=== PATIENT | male | born 1990 | race Hispanic/Latino ===

== ENCOUNTER 2018-03-29 11:00 | Emergency (ER) | payer OTHER, SELFPAY ==
[2018-03-29] MEDS ORDERED: Dexamethasone 10 MG/ML VIAL ONE (11:25)
[2018-03-29] MEDS ORDERED: Ketorolac Tromethamine 60 MG/2 ML VIAL ONE (11:25)
== END 2018-03-29 12:24 | disposition home or self-care (01) ==
LOC: ERS 11:00
DX: M54.5 Low back pain (principal); E66.01 Morbid (severe) obesity due to excess calories
CPT/HCPCS: 96372; J1100; J1885

== ENCOUNTER 2018-05-27 16:03 | Emergency (ER) | payer SELFPAY ==
--- NOTE | 2018-05-27 16:42 | RAD ---
RADIOGRAPH CHEST 2 VIEWS: HISTORY: 28-year-old male with chest pain. FINDINGS: The lungs are very hypoinflated on the frontal view. There is no air space density, pulmonary edema, pleural effusion, or pneumothorax. IMPRESSION: No acute pulmonary findings. beck mcguire POS: JOAO
[2018-05-27 17:21] LABS: #Basophils 0.1 thou/uL (0.0-0.2); #Eosinphils 0.2 thou/uL (0.0-0.7); #Lymphocytes 2.4 thou/uL (1.20-3.40); #Monocytes 0.5 thou/uL (0.11-0.59); %Basophils 0.6 % (0.0-1.0); %Eosinophils 1.3 % (0.0-10.0); %Lymphocytes 19.7 % (21.0-51.0); %Monocytes 4.3 % (0.0-10.0); %Neutrophils 74.1 % (42.0-75.0); Hemoglobin 14.6 g/dL (14.0-18.0); Mean Corpuscular HGB CONC 34.8 g/dL (32.0-36.0); Mean Corpuscular Hemoglobin 29.5 pg (27.0-31.0); Mean Corpuscular Volume 84.8 fL (78.0-98.0); Mean Platelet Volume 7.9 fL (7.4-10.4); Platelet Count 322 thou/uL (130-400); RBC Distribution Width 13.6 % (11.5-14.5); Red Blood Cell (RBC) Count 4.94 mill/uL (4.70-6.10); White Blood Cell (WBC) Count 12.2 thou/uL (4.8-10.8)
[2018-05-27 17:43] LABS: ALT (SGPT) 50 U/L (8-55); AST (SGOT) 29 U/L (5-34); Albumin 3.9 g/dL (3.5-5.0); Alkaline Phosphatase 121 U/L (40-150); Anion Gap 16 mmol/L (10-20); BUN (Urea Nitrogen) 10 mg/dL (8.9-20.6); Bilirubin, Total 0.6 mg/dL (0.2-1.2); CK (CPK) 69 U/L (30-200); Calc. Creatinine Clearance 0 mL/min (70-130); Calcium 9.4 mg/dL (7.8-10.44); Carbon Dioxide 18 mmol/L (22-29); Chloride 104 mmol/L (98-107); Estimated GFR-MDRD Greater than 90; Globulin 3.1 g/dL (2.4-3.5); Glucose 343 mg/dL (70-105); Potassium 3.9 mmol/L (3.5-5.1); Sodium 134 mmol/L (136-145)
[2018-05-27] MEDS ORDERED: Ketorolac Tromethamine 30 MG/ML VIAL ONE (20:52)
== END 2018-05-27 22:16 | disposition home or self-care (01) ==
LOC: ERS 16:03
DX: R07.2 Precordial pain (principal); R06.02 Shortness of breath
CPT/HCPCS: 36415; 71046; 80053; 82550; 84484; 85025; 85379; 93005; 94760; 96361; 96374; J1885

== ENCOUNTER 2018-10-08 06:17 | Emergency (ER) | payer SELFPAY ==
[2018-10-08] MEDS ORDERED: cloNIDine 0.1 MG TAB ONE (06:50)
[2018-10-08] MEDS ORDERED: Dexamethasone 10 MG/ML VIAL ONE (06:50)
[2018-10-08 07:01] LABS: #Eosinphils 0.2 thou/uL (0.0-0.7); #Lymphocytes 2.7 thou/uL (1.20-3.40); #Monocytes 0.6 thou/uL (0.11-0.59); %Basophils 0.2 % (0.0-1.0); %Eosinophils 1.6 % (0.0-10.0); %Monocytes 4.4 % (0.0-10.0); %Neutrophils 73.8 % (42.0-75.0); Hemoglobin 14.2 g/dL (14.0-18.0); Mean Corpuscular HGB CONC 35.7 g/dL (32.0-36.0); Mean Corpuscular Hemoglobin 29.6 pg (27.0-31.0); Mean Platelet Volume 7.4 fL (7.4-10.4); Platelet Count 310 thou/uL (130-400); RBC Distribution Width 14.2 % (11.5-14.5); Red Blood Cell (RBC) Count 4.79 mill/uL (4.70-6.10); White Blood Cell (WBC) Count 13.5 thou/uL (4.8-10.8)
[2018-10-08] MEDS ORDERED: cefTRIAXone\\ROCEPHIN 1 GM VIAL ONE (07:17)
--- NOTE | 2018-10-08 07:26 | RAD ---
RADIOGRAPH CHEST 2 VIEWS: DATE: HISTORY: Cough and dyspnea FINDINGS: There is no airspace density, pulmonary edema, pleural effusion, pneumothorax, or cardiomegaly. IMPRESSION: No acute cardiopulmonary findings.
[2018-10-08 07:29] LABS: ALT (SGPT) 41 U/L (8-55); AST (SGOT) 21 U/L (5-34); Albumin 4.1 g/dL (3.5-5.0); Alkaline Phosphatase 96 U/L (40-150); Anion Gap 13 mmol/L (10-20); BUN (Urea Nitrogen) 12 mg/dL (8.9-20.6); Bilirubin, Total 0.9 mg/dL (0.2-1.2); Calc. Creatinine Clearance 0 mL/min (70-130); Calcium 9.2 mg/dL (7.8-10.44); Carbon Dioxide 22 mmol/L (22-29); Chloride 106 mmol/L (98-107); Estimated GFR-MDRD Greater than 90; Globulin 2.5 g/dL (2.4-3.5); Glucose 222 mg/dL (70-105); Protein, Total 6.6 g/dL (6.0-8.3); Sodium 137 mmol/L (136-145)
== END 2018-10-08 08:09 | disposition home or self-care (01) ==
LOC: ERS 06:17
DX: J20.9 Acute bronchitis, unspecified (principal)
CPT/HCPCS: 71046; 80053; 82550; 84484; 85025; 85379; 93005; 94640; 96365; J0696; J1100; J7620

== ENCOUNTER 2019-06-07 19:18 | Emergency (ER) | payer SELFPAY ==
[2019-06-07] MEDS ORDERED: Acetaminophen 500 MG TAB ONE (21:17)
[2019-06-07] MEDS ORDERED: Ondansetron ODT 4 MG TAB ONE (21:17)
[2019-06-07] MEDS ORDERED: Ibuprofen 800 MG TAB ONE (21:17)
== END 2019-06-08 00:21 | disposition home or self-care (01) ==
LOC: ERS 19:18
DX: J10.1 Influenza due to other identified influenza virus with other respiratory manifestations (principal)
CPT/HCPCS: 87804; 99283; Q0162

== ENCOUNTER 2020-03-19 09:09 | Emergency (ER) | payer SELFPAY ==
[2020-03-19] MEDS ORDERED: Dexamethasone 10 MG/ML VIAL ONE (09:52)
[2020-03-19 10:08] LABS: #Eosinphils 0.1 thou/uL (0.0-0.7); #Monocytes 0.3 thou/uL (0.11-0.59); #Neutrophils 4.2 thou/uL (1.40-6.50); %Basophils 0.4 % (0.0-1.0); %Lymphocytes 18.6 % (21.0-51.0); %Monocytes 5.7 % (0.0-10.0); %Neutrophils 74.3 % (42.0-75.0); Hemoglobin 14.1 g/dL (14.0-18.0); Mean Corpuscular HGB CONC 35.2 g/dL (32.0-36.0); Mean Corpuscular Hemoglobin 29.1 pg (27.0-31.0); Mean Corpuscular Volume 82.6 fL (78.0-98.0); Mean Platelet Volume 7.7 fL (7.4-10.4); Platelet Count 215 thou/uL (130-400); RBC Distribution Width 13.6 % (11.5-14.5); Red Blood Cell (RBC) Count 4.84 mill/uL (4.70-6.10); White Blood Cell (WBC) Count 5.6 thou/uL (4.8-10.8)
--- NOTE | 2020-03-19 10:25 | RAD ---
XR Chest 1 View Portable HISTORY: Shortness of breath, COVID positive COMPARISON: None FINDINGS: The heart size is normal. The lungs are well expanded without lobar consolidation, pneumoth orax or pleural effusions. There is mild infiltrate versus atelectatic change at the left lung base.
[2020-03-19 10:36] LABS: ALT (SGPT) 53 U/L (8-55); AST (SGOT) 41 U/L (5-34); Albumin 3.8 g/dL (3.5-5.0); Alkaline Phosphatase 76 U/L (40-110); Anion Gap 16 mmol/L (10-20); BUN (Urea Nitrogen) 9 mg/dL (8.9-20.6); Bilirubin, Total 1.2 mg/dL (0.2-1.2); CK (CPK) 48 U/L (30-200); Calc. Creatinine Clearance 0 mL/min (70-130); Calcium 8.5 mg/dL (7.8-10.44); Carbon Dioxide 20 mmol/L (22-29); Chloride 102 mmol/L (98-107); Estimated GFR-MDRD Greater than 90; Globulin 3.1 g/dL (2.4-3.5); Glucose 233 mg/dL (70-105); Lipase 24 U/L (8-78); Potassium 3.6 mmol/L (3.5-5.1); Protein, Total 6.9 g/dL (6.0-8.3); Sodium 134 mmol/L (136-145)
[2020-03-19] MEDS ORDERED: Aspirin Chewable 81 MG TAB ONE (10:39)
--- NOTE | 2020-03-31 17:51 | EKG ---
Test Reason : Blood Pressure : / mmHG Vent. Rate : 118 BPM Atrial Rate : 118 BPM P-R Int : 130 ms QRS Dur : 078 ms QT Int : 328 ms P-R-T Axes : 022 005 003 degrees QTc Int : 459 ms Sinus tachycardia Possible Inferior infarct , age undetermined Abnormal ECG Confirmed by PEG BENNETT, JULISSA ([id number]), food expeditor NEAL BATES ([id number]) on 03/31/2020 5:51:16 PM Referred By: Confirmed By:JULISSA RUVALCABA MD
== END 2020-03-19 12:45 | disposition home or self-care (01) ==
LOC: ERS 09:09
DX: U07.1 COVID-19 (principal)
CPT/HCPCS: 36415; 71045; 80053; 82550; 83605; 83690; 83880; 84484; 85025; 85379; 87040; 93005; 94760; 96374; J1100

== ENCOUNTER 2024-02-26 14:39 | Inpatient (IN) | payer OTHER, SELFPAY ==
[2024-02-26] MEDS ORDERED: Nitroglycerin 0.4 MG TAB 1 EACH ONE (15:21)
[2024-02-26] MEDS ORDERED: Aspirin Chewable 81 MG TAB ONE (15:21)
[2024-02-26 15:35] LABS: #Basophils 0.04 10x3/uL (0.0-0.2); %Basophils 0.4 % (0.0-1.0); %Eosinophils 1.2 % (0.0-10.0); %Lymphocytes 13.5 % (21.0-51.0); %Monocytes 4.2 % (0.0-10.0); %Neutrophils 79.8 % (42.0-75.0); Hematocrit 42.9 % (42.0-52.0); Hemoglobin 15.1 g/dL (14.0-18.0); Mean Corpuscular HGB CONC 35.2 g/dL (32.0-36.0); Mean Corpuscular Hemoglobin 30.6 pg (27.0-31.0); Mean Corpuscular Volume 86.8 fL (78.0-98.0); Mean Platelet Volume 9.6 fL (7.4-10.4); Platelet Count 249 10x3/uL (130-400); RBC Distribution Width 14.3 % (11.5-14.5); Red Blood Cell (RBC) Count 4.94 mill/uL (4.70-6.10)
[2024-02-26 15:54] LABS: ALT (SGPT) 42 U/L (8-55); AST (SGOT) 24 U/L (5-34); Albumin 3.5 g/dL (3.5-5.0); Alkaline Phosphatase 102 U/L (40-110); Anion Gap 13 mmol/L (10-20); BUN (Urea Nitrogen) 11 mg/dL (8.9-20.6); Bilirubin, Total 1.4 mg/dL (0.2-1.2); Calc. Creatinine Clearance 0 mL/min (70-130); Calcium 8.8 mg/dL (7.8-10.44); Carbon Dioxide 23 mmol/L (22-29); Chloride 104 mmol/L (98-107); Estimated GFR 93; Glucose 378 mg/dL (70-105); Lipase 33 U/L (8-78); Potassium 3.7 mmol/L (3.5-5.1); Protein, Total 6.5 g/dL (6.0-8.3); Sodium 136 mmol/L (136-145)
[2024-02-26 16:00] LABS: Troponin I 0.014 ng/mL (< 0.028)
[2024-02-26] MEDS ORDERED: Labetalol HCl 100 MG/20 ML VIAL ONE (16:17)
[2024-02-26 18:28] LABS: Troponin I 0.168 ng/mL (< 0.028)
[2024-02-26] MEDS ORDERED: Enoxaparin 30 MG (0.3 mL) SYRINGE ONE (19:19)
[2024-02-26] MEDS ORDERED: Nitroglycerin 2% Ointment 1 INCH/1 GM Packet ONE (19:20)
[2024-02-26] MEDS ORDERED: Enoxaparin 100 MG (1 mL) SYRINGE ONE (19:20)
[2024-02-26] MEDS ORDERED: Ondansetron PF 4 MG/2 ML Vial IVP PRN (19:34)
[2024-02-26] MEDS ORDERED: Dextrose 5% in Water 1,000 ML IV PRN (19:36)
[2024-02-26] MEDS ORDERED: Glucagon 1 MG/ML KIT IM PRN (19:36)
[2024-02-26] MEDS ORDERED: Dextrose 50% Abboject 50 ML SYRINGE SLOW IVP PRN (19:36)
[2024-02-26 21:22] VITALS: BMI 43.0
[2024-02-26] MEDS: Melatonin 3 MG TAB PO PRN (23:29)
[2024-02-27 01:43] LABS: Troponin I 1.153 ng/mL (< 0.028)
[2024-02-27] MEDS: Acetaminophen 325 MG TAB PO PRN (01:48)
[2024-02-27 03:40] LABS: #Basophils Less than 0.03 10x3/uL (0.0-0.2); %Basophils 0.2 % (0.0-1.0); %Eosinophils 1.4 % (0.0-10.0); %Lymphocytes 16.6 % (21.0-51.0); %Monocytes 4.8 % (0.0-10.0); %Neutrophils 76.2 % (42.0-75.0); Hematocrit 37.9 % (42.0-52.0); Hemoglobin 13.2 g/dL (14.0-18.0); Mean Corpuscular HGB CONC 34.8 g/dL (32.0-36.0); Mean Corpuscular Hemoglobin 30.3 pg (27.0-31.0); Mean Corpuscular Volume 87.1 fL (78.0-98.0); Mean Platelet Volume 9.4 fL (7.4-10.4); Platelet Count 197 10x3/uL (130-400); RBC Distribution Width 14.3 % (11.5-14.5); Red Blood Cell (RBC) Count 4.35 mill/uL (4.70-6.10)
[2024-02-27 03:57] LABS: INR-International Normal Ratio 1.1; Prothrombin Time 13.7 sec (12.0-14.7)
[2024-02-27 03:58] LABS: PTT 36.6 sec (22.9-36.1)
[2024-02-27 04:06] LABS: Hemoglobin A1c 6.6 % (4.0-6.0)
[2024-02-27 04:11] LABS: Anion Gap 13 mmol/L (10-20); BUN (Urea Nitrogen) 11 mg/dL (8.9-20.6); Calc. Creatinine Clearance 207 mL/min (70-130); Carbon Dioxide 22 mmol/L (22-29); Cardiac Risk 5.6 (Less than 4.5); Chloride 104 mmol/L (98-107); Cholesterol 141 mg/dl (< 200 Desired); Estimated GFR 122; Glucose 212 mg/dL (70-105); HDL Cholesterol 25 mg/dL (>60 Neg Risk); LDL Cholesterol, Calculated 63 mg/dL; Potassium 3.2 mmol/L (3.5-5.1); Sodium 136 mmol/L (136-145); Triglycerides 267 mg/dL (Less than 150)
[2024-02-27 04:25] LABS: Troponin I 1.306 ng/mL (< 0.028)
[2024-02-27] MEDS: Potassium Chloride 20 MEQ TAB PO SCH (05:18)
[2024-02-27 06:07] LABS: Magnesium 1.9 mg/dL (1.6-2.6)
[2024-02-27 07:31] LABS: Amphetamine Not Detected (NotDetected); Barbiturates Screen Not Detected (NotDetected); Benzodiazepine Screen Not Detected (NotDetected); Cocaine Metabolite Screen Not Detected (NotDetected); Methadone Not Detected (NotDetected); Methamphetamine Not Detected (NotDetected); Opiate Screen Not Detected (NotDetected); Oxycodone Screen Not Detected (NotDetected); Phencyclidine (PCP) Not Detected (NotDetected); THC/Cannabinoid Screen Not Detected (NotDetected); Tricyclic Screen Not Detected (NotDetected)
[2024-02-27 07:39] LABS: Critical Call Chem Troponin I RESULT DECREASING; Troponin I 1.071 ng/mL (< 0.028)
[2024-02-27] MEDS: Lisinopril 5 MG TAB PO SCH (08:04)
[2024-02-27] MEDS: Aspirin 81 mg Enteric Coated Tablet PO SCH (08:05)
[2024-02-27] MEDS: Heparin 10,000 UNITS/ 10 ML VIAL SLOW IVP SCH (08:06)
[2024-02-27] MEDS: Heparin 25,000 units/D5W 500 ML IVPB SCH (08:10)
[2024-02-27] MEDS ORDERED: Enoxaparin 40 MG (0.4 mL) SYRINGE SC SCH (09:00)
[2024-02-27] MEDS: Metoprolol Tartrate 25 MG TAB PO SCH (09:32)
[2024-02-27] MEDS ORDERED: CATH FS PRN (13:15)
[2024-02-27] MEDS ORDERED: Communication Order-Pharmacy FS SCH (13:15)
[2024-02-27] MEDS: Metoprolol Tartrate 5 MG (5 mL) VIAL IVP SCH (18:53)
[2024-02-27] MEDS: Morphine 4 MG/ML VIAL SLOW IVP SCH (18:53)
[2024-02-27] MEDS: Insulin Lispro 100 UNIT/ML 10 ML VIAL SC PRN ×2 (18:54→20:29)
[2024-02-27] MEDS: Nitroglycerin 0.4 MG TAB (25 Tab Bottle) SL PRN (18:56)
[2024-02-27] MEDS: Nitroglycerin 2% Ointment 1 INCH/1 GM Packet TOP SCH (20:23)
[2024-02-27] MEDS: Atorvastatin Calcium 40 MG TAB PO SCH (20:28)
[2024-02-28 04:35] LABS: #Basophils 0.04 10x3/uL (0.0-0.2); %Basophils 0.4 % (0.0-1.0); %Eosinophils 1.6 % (0.0-10.0); %Lymphocytes 17.8 % (21.0-51.0); %Monocytes 4.7 % (0.0-10.0); %Neutrophils 74.3 % (42.0-75.0); Hematocrit 39.2 % (42.0-52.0); Hemoglobin 13.6 g/dL (14.0-18.0); Mean Corpuscular HGB CONC 34.7 g/dL (32.0-36.0); Mean Corpuscular Hemoglobin 30.6 pg (27.0-31.0); Mean Corpuscular Volume 88.1 fL (78.0-98.0); Mean Platelet Volume 9.6 fL (7.4-10.4); Platelet Count 226 10x3/uL (130-400); RBC Distribution Width 14.5 % (11.5-14.5); Red Blood Cell (RBC) Count 4.45 mill/uL (4.70-6.10)
[2024-02-28 04:47] LABS: Anion Gap 12 mmol/L (10-20); BUN (Urea Nitrogen) 13 mg/dL (8.9-20.6); Calc. Creatinine Clearance 175 mL/min (70-130); Calcium 8.4 mg/dL (7.8-10.44); Carbon Dioxide 21 mmol/L (22-29); Chloride 106 mmol/L (98-107); Estimated GFR 116; Glucose 225 mg/dL (70-105); Magnesium 2.1 mg/dL (1.6-2.6); Potassium 3.7 mmol/L (3.5-5.1); Sodium 135 mmol/L (136-145)
[2024-02-29 05:19] LABS: #Basophils 0.06 10x3/uL (0.0-0.2); %Basophils 0.4 % (0.0-1.0); %Eosinophils 1.4 % (0.0-10.0); %Monocytes 5.3 % (0.0-10.0); %Neutrophils 75.5 % (42.0-75.0); Hematocrit 43.7 % (42.0-52.0); Hemoglobin 15.5 g/dL (14.0-18.0); Mean Corpuscular HGB CONC 35.5 g/dL (32.0-36.0); Mean Corpuscular Hemoglobin 30.3 pg (27.0-31.0); Mean Corpuscular Volume 85.4 fL (78.0-98.0); Mean Platelet Volume 9.9 fL (7.4-10.4); Platelet Count 285 10x3/uL (130-400); RBC Distribution Width 14.5 % (11.5-14.5); Red Blood Cell (RBC) Count 5.12 mill/uL (4.70-6.10)
[2024-02-29 05:40] LABS: Anion Gap 16 mmol/L (10-20); BUN (Urea Nitrogen) 13 mg/dL (8.9-20.6); Calc. Creatinine Clearance 191 mL/min (70-130); Calcium 9.1 mg/dL (7.8-10.44); Carbon Dioxide 20 mmol/L (22-29); Chloride 101 mmol/L (98-107); Estimated GFR 119; Glucose 219 mg/dL (70-105); Potassium 3.2 mmol/L (3.5-5.1); Sodium 134 mmol/L (136-145)
[2024-02-29] MEDS: Sodium Chloride 0.9% 1,000 ML IV SCH ×2 (05:43→14:15)
[2024-02-29] MEDS ORDERED: Midazolam HCl 2 mg/2 ml Vial ONE (08:45)
[2024-02-29] MEDS ORDERED: fentaNYL 50 mcg/mL 1 mL Vial ONE (08:45)
[2024-02-29] MEDS ORDERED: Nitroglycerin 50 MG/250 ML BOT 250 ML ONE (08:46)
[2024-02-29] MEDS ORDERED: Heparin 10,000 UNITS/ 10 ML VIAL ONE (08:46)
[2024-02-29] MEDS ORDERED: Iopamidol 370 76% 100 ML VIAL ONE (09:10)
[2024-02-29] MEDS ORDERED: Clopidogrel Bisulfate 300 MG TAB ONE (10:18)
[2024-02-29] MEDS: Isosorbide Mononitrate 30 MG ER.TAB PO SCH (11:23)
[2024-02-29] MEDS: Potassium Chloride 20 MEQ TAB PO SCH (15:48)
[2024-02-29] MEDS: Metoprolol Tartrate 25 MG TAB PO SCH (20:27)
[2024-03-01 05:12] LABS: #Basophils Less than 0.03 10x3/uL (0.0-0.2); %Basophils 0.2 % (0.0-1.0); %Eosinophils 0.9 % (0.0-10.0); %Lymphocytes 11.8 % (21.0-51.0); %Monocytes 6.2 % (0.0-10.0); %Neutrophils 79.4 % (42.0-75.0); Hematocrit 38.3 % (42.0-52.0); Hemoglobin 13.2 g/dL (14.0-18.0); Mean Corpuscular HGB CONC 34.5 g/dL (32.0-36.0); Mean Corpuscular Hemoglobin 30.7 pg (27.0-31.0); Mean Corpuscular Volume 89.1 fL (78.0-98.0); Mean Platelet Volume 9.8 fL (7.4-10.4); Platelet Count 223 10x3/uL (130-400); RBC Distribution Width 14.6 % (11.5-14.5)
[2024-03-01 05:27] LABS: ALT (SGPT) 66 U/L (8-55); AST (SGOT) 37 U/L (5-34); Albumin 3.1 g/dL (3.5-5.0); Alkaline Phosphatase 79 U/L (40-110); Anion Gap 11 mmol/L (10-20); BUN (Urea Nitrogen) 12 mg/dL (8.9-20.6); Bilirubin, Total 2.4 mg/dL (0.2-1.2); Calc. Creatinine Clearance 157 mL/min (70-130); Calcium 8.5 mg/dL (7.8-10.44); Carbon Dioxide 22 mmol/L (22-29); Chloride 107 mmol/L (98-107); Estimated GFR 106; Globulin 2.6 g/dL (2.4-3.5); Glucose 215 mg/dL (70-105); Protein, Total 5.7 g/dL (6.0-8.3); Sodium 136 mmol/L (136-145)
[2024-03-01 08:09] VITALS: BP 170/95; TEMP 98.5
[2024-03-01] MEDS: Isosorbide Mononitrate 30 MG ER.TAB PO SCH (09:41)
[2024-03-01] MEDS: Clopidogrel Bisulfate 75 MG TAB PO SCH (09:41)
[2024-03-01] MEDS: Metoprolol Tartrate 50 MG TAB PO SCH (09:41)
[2024-03-01] MEDS ORDERED: Atorvastatin Calcium 20 MG TAB PO SCH (21:00)
== END 2024-03-01 11:15 | disposition home or self-care (01) | DRG 322 ==
LOC: ERS 14:39 → OBS 19:33 → OBSVTOIN 02-27 16:10
PROVIDERS: ADMIT Internal Medicine; ATTEND Internal Medicine
PROC: 027034Z Dilation of Coronary Artery, One Artery with Drug-eluting Intraluminal Device, Percutaneous Approach (ICD-10-PCS; principal; 2024-02-27)
PROC: 4A023N7 Measurement of Cardiac Sampling and Pressure, Left Heart, Percutaneous Approach (ICD-10-PCS; 2024-02-27)
PROC: B2111ZZ Fluoroscopy of Multiple Coronary Arteries using Low Osmolar Contrast (ICD-10-PCS; 2024-02-27)
DX: I21.4 Non-ST elevation (NSTEMI) myocardial infarction (principal); I50.32 Chronic diastolic (congestive) heart failure; Z68.41 Body mass index [BMI] 40.0-44.9, adult; I25.10 Atherosclerotic heart disease of native coronary artery without angina pectoris; I11.0 Hypertensive heart disease with heart failure; E66.9 Obesity, unspecified; F17.210 Nicotine dependence, cigarettes, uncomplicated; I16.0 Hypertensive urgency; Z90.49 Acquired absence of other specified parts of digestive tract; Z91.148 Patient's other noncompliance with medication regimen for other reason; Z79.84 Long term (current) use of oral hypoglycemic drugs; Z79.899 Other long term (current) drug therapy
CPT/HCPCS: 36415; 36416; 71045; 80048; 80053; 80061; 80306; 83036; 83690; 83735; 84484; 85025; 85347; 85379; 85610; 85730; 92928; 93005; 93010; 93306; 93458; 96372; 96374; 96375; 96376; 97139; 99152; 99153; C1725; C1769; C1874; C1887; C9600; G0378; J1644; J1650; J1815; J2250; J2272; J3010; Q9967

== ENCOUNTER 2024-03-02 01:13 | Inpatient (IN) | payer SELFPAY ==
[2024-03-02 01:37] LABS: #Basophils 0.04 10x3/uL (0.0-0.2); %Basophils 0.3 % (0.0-1.0); %Eosinophils 0.8 % (0.0-10.0); %Lymphocytes 12.5 % (21.0-51.0); %Monocytes 5.4 % (0.0-10.0); %Neutrophils 79.7 % (42.0-75.0); Hematocrit 40.6 % (42.0-52.0); Hemoglobin 14.2 g/dL (14.0-18.0); Mean Corpuscular Hemoglobin 30.1 pg (27.0-31.0); Mean Corpuscular Volume 86.2 fL (78.0-98.0); Mean Platelet Volume 9.5 fL (7.4-10.4); Platelet Count 235 10x3/uL (130-400); RBC Distribution Width 14.1 % (11.5-14.5); Red Blood Cell (RBC) Count 4.71 mill/uL (4.70-6.10)
[2024-03-02 02:00] LABS: ALT (SGPT) 72 U/L (8-55); AST (SGOT) 33 U/L (5-34); Albumin 3.8 g/dL (3.5-5.0); Alkaline Phosphatase 94 U/L (40-110); Anion Gap 16 mmol/L (10-20); BUN (Urea Nitrogen) 17 mg/dL (8.9-20.6); Bilirubin, Total 2.8 mg/dL (0.2-1.2); Calc. Creatinine Clearance 0 mL/min (70-130); Calcium 9.3 mg/dL (7.8-10.44); Carbon Dioxide 16 mmol/L (22-29); Chloride 108 mmol/L (98-107); Estimated GFR 99; Globulin 3.3 g/dL (2.4-3.5); Glucose 248 mg/dL (70-105); Lipase 60 U/L (8-78); Potassium 3.9 mmol/L (3.5-5.1); Protein, Total 7.1 g/dL (6.0-8.3); Sodium 136 mmol/L (136-145)
[2024-03-02 02:32] LABS: Troponin I 0.543 ng/mL (< 0.028)
[2024-03-02] MEDS ORDERED: Nitroglycerin 0.4 MG TAB 1 EACH ONE ×2 (02:49→03:59)
[2024-03-02] MEDS ORDERED: niCARdipine 25 MG/10 ML SDV ONE (05:06)
[2024-03-02 05:16] LABS: Troponin I 0.479 ng/mL (< 0.028)
[2024-03-02] MEDS ORDERED: Labetalol HCl 100 MG/20 ML VIAL ONE (06:28)
[2024-03-02] MEDS ORDERED: Enoxaparin 100 MG (1 mL) SYRINGE ONE (06:28)
[2024-03-02] MEDS ORDERED: Acetaminophen 650 MG Suppository PR PRN (08:17)
[2024-03-02] MEDS ORDERED: Senokot S 8.6-50 MG TAB PO PRN (08:17)
[2024-03-02] MEDS ORDERED: Dextrose 50% Abboject 50 ML SYRINGE SLOW IVP PRN (08:40)
[2024-03-02] MEDS ORDERED: Dextrose 5% in Water 1,000 ML IV PRN (08:40)
[2024-03-02] MEDS ORDERED: Insulin Lispro 100 UNIT/ML 10 ML VIAL SC PRN ×2 (08:40)
[2024-03-02] MEDS ORDERED: Glucagon 1 MG/ML KIT IM PRN (08:40)
[2024-03-02 09:29] LABS: Troponin I 0.612 ng/mL (< 0.028)
[2024-03-02] MEDS ORDERED: Lisinopril 5 MG TAB ONE (09:40)
[2024-03-02] MEDS ORDERED: Clopidogrel Bisulfate 75 MG TAB ONE (09:40)
[2024-03-02] MEDS ORDERED: Aspirin Chewable 81 MG TAB ONE (09:40)
[2024-03-02] MEDS: Lisinopril 5 MG TAB PO SCH (09:45)
[2024-03-02] MEDS: Aspirin 81 mg Enteric Coated Tablet PO SCH (09:47)
[2024-03-02] MEDS: Clopidogrel Bisulfate 75 MG TAB PO SCH (09:47)
[2024-03-02] MEDS: Isosorbide Mononitrate 30 MG ER.TAB PO SCH (09:53)
[2024-03-02] MEDS ORDERED: Iopamidol-370 76% 500 ML MDV (1 ML CHARGE) ONE (10:30)
[2024-03-02] MEDS ORDERED: Amlodipine 5 MG TAB ONE (11:05)
[2024-03-02] MEDS: Amlodipine 5 MG TAB PO SCH (11:12)
[2024-03-02 11:35] LABS: Troponin I 0.694 ng/mL (< 0.028)
[2024-03-02] MEDS ORDERED: Communication Order-Pharmacy FS PRN (13:01)
[2024-03-02 14:58] LABS: Hematocrit 37.4 % (42.0-52.0); Hemoglobin 13.2 g/dL (14.0-18.0); Platelet Count 234 10x3/uL (130-400)
[2024-03-02] MEDS: Acetaminophen 325 MG TAB PO PRN (17:28)
[2024-03-02] MEDS ORDERED: Acetaminophen 325 MG Suppository ONE (17:29)
[2024-03-02] MEDS ORDERED: Acetaminophen 325 MG TAB ONE (17:30)
[2024-03-02 18:43] VITALS: BMI 41.5
[2024-03-02] MEDS: Metoprolol Tartrate 25 MG TAB PO SCH (20:37)
[2024-03-02] MEDS: Metoprolol Tartrate 50 MG TAB PO SCH (20:41)
[2024-03-02] MEDS: Enoxaparin 100 MG (1 mL) SYRINGE SC SCH ×2 (20:56→22:47)
[2024-03-03 03:42] LABS: #Basophils 0.03 10x3/uL (0.0-0.2); %Basophils 0.3 % (0.0-1.0); %Eosinophils 1.7 % (0.0-10.0); %Lymphocytes 17.6 % (21.0-51.0); %Monocytes 6.3 % (0.0-10.0); %Neutrophils 72.8 % (42.0-75.0); Hematocrit 35.8 % (42.0-52.0); Hemoglobin 12.8 g/dL (14.0-18.0); Mean Corpuscular HGB CONC 35.8 g/dL (32.0-36.0); Mean Corpuscular Volume 86.7 fL (78.0-98.0); Mean Platelet Volume 9.9 fL (7.4-10.4); Platelet Count 203 10x3/uL (130-400); RBC Distribution Width 14.3 % (11.5-14.5); Red Blood Cell (RBC) Count 4.13 mill/uL (4.70-6.10)
[2024-03-03 04:02] LABS: Anion Gap 11 mmol/L (10-20); BUN (Urea Nitrogen) 11 mg/dL (8.9-20.6); Calc. Creatinine Clearance 187 mL/min (70-130); Calcium 8.5 mg/dL (7.8-10.44); Carbon Dioxide 19 mmol/L (22-29); Chloride 109 mmol/L (98-107); Estimated GFR 119; Glucose 214 mg/dL (70-105); Potassium 3.7 mmol/L (3.5-5.1); Sodium 135 mmol/L (136-145)
[2024-03-04 04:29] LABS: #Basophils 0.04 10x3/uL (0.0-0.2); %Basophils 0.5 % (0.0-1.0); %Eosinophils 1.9 % (0.0-10.0); %Lymphocytes 19.9 % (21.0-51.0); %Monocytes 5.8 % (0.0-10.0); Hematocrit 37.2 % (42.0-52.0); Hemoglobin 12.8 g/dL (14.0-18.0); Mean Corpuscular HGB CONC 34.4 g/dL (32.0-36.0); Mean Corpuscular Hemoglobin 30.3 pg (27.0-31.0); Mean Corpuscular Volume 87.9 fL (78.0-98.0); Mean Platelet Volume 9.8 fL (7.4-10.4); Platelet Count 207 10x3/uL (130-400); RBC Distribution Width 14.5 % (11.5-14.5); Red Blood Cell (RBC) Count 4.23 mill/uL (4.70-6.10)
[2024-03-04 04:41] LABS: Anion Gap 13 mmol/L (10-20); BUN (Urea Nitrogen) 13 mg/dL (8.9-20.6); Calc. Creatinine Clearance 161 mL/min (70-130); Calcium 8.8 mg/dL (7.8-10.44); Carbon Dioxide 23 mmol/L (22-29); Chloride 107 mmol/L (98-107); Estimated GFR 114; Glucose 155 mg/dL (70-105); Potassium 3.9 mmol/L (3.5-5.1); Sodium 139 mmol/L (136-145)
[2024-03-04 10:30] VITALS: BP 124/83; TEMP 98
[2024-03-04] MEDS ORDERED: Iopamidol 370 76% 100 ML VIAL ONE (10:57)
== END 2024-03-04 12:26 | disposition home or self-care (01) | DRG 281 ==
LOC: ERS 01:13 → ERHOLD 06:19 → 2SE 18:24 → OBSVTOIN 03-03 13:29
PROVIDERS: ADMIT Family Medicine; ATTEND Family Medicine
DX: R07.89 Other chest pain (principal); Z68.41 Body mass index [BMI] 40.0-44.9, adult; I21.4 Non-ST elevation (NSTEMI) myocardial infarction; D86.1 Sarcoidosis of lymph nodes; E78.5 Hyperlipidemia, unspecified; E11.9 Type 2 diabetes mellitus without complications; I25.10 Atherosclerotic heart disease of native coronary artery without angina pectoris; I10 Essential (primary) hypertension; I16.0 Hypertensive urgency; Z95.5 Presence of coronary angioplasty implant and graft; E66.9 Obesity, unspecified; F17.200 Nicotine dependence, unspecified, uncomplicated; Z90.49 Acquired absence of other specified parts of digestive tract; Z79.899 Other long term (current) drug therapy; Z79.02 Long term (current) use of antithrombotics/antiplatelets
CPT/HCPCS: 36415; 36416; 71045; 71275; 74174; 80048; 80053; 82164; 82306; 83690; 84484; 85025; 86141; 93005; 93306; 93970; 96372; G0378; J1650; Q9967